=== PATIENT | female | born 1955 | race Caucasian/White ===

== ENCOUNTER 2024-07-09 15:43 | Emergency (ER) | payer MEDICARE ==
--- NOTE | 2024-07-09 15:49 | ERPHSYRPT ---
- History of Present Illness Time Seen by Provider: 07/09/24 15:48 Source: patient Exam Limitations: no limitations Physician History: This is a 69-year-old white female patient who was sent to the emergency department by the office of Dr. Rutherford secondary to finding of a nondisplaced proximal left femur subcapital fracture found on an x-ray that was performed approximately an hour prior to arrival to the emergency department. Patient states that she recalls injuring the left hip approximately 2 weeks ago. Patient has a left below the knee amputation and put herself on nonweightbearing until approximately 2 days ago. Since then she has been weightbearing again. Patient has chronic low back pain and recently switched to oxycodone medication that helps her back. She also is on Topamax to help with her left below the knee phantom pain. Patient has a history of coronary artery disease. She has no chest pain or shortness of breath at this time. Timing/Duration: week(s) (2), other (Pain is not worse but it is present with ambulation) Occured at: home Context: unknown Quality: sharpness Hip Pain Location: hip (L) Severity of Pain-Max: mild (To moderate) Severity of Pain-Current: mild (To moderate) Modifying Factors: Improves With: movement Symptoms prior to fall: none Associated Symptoms: denies symptoms Allergies/Adverse Reactions: cephalexin [From Keflex] Allergy (Verified 07/09/24 15:56) flush and fainting Home Medications: Aspirin 81 gm Chew [Baby Aspirin 81 mg Chew] 81 mg PO DAILY 12/27/22 [History] Buspirone HCl 5 mg [Buspar 5 mg] 15 mg PO BID 12/27/22 [History] Cilostazol 100 mg [Pletal 100 MG] 100 mg PO BID 12/27/22 [History] Fluoxetine HCl 20 mg [Prozac 20 MG] 20 mg PO DAILY 12/27/22 [History] Furosemide [Lasix] 20 mg PO DAILY 12/27/22 [History] Gabapentin [Neurontin ] 300 mg PO TID 12/27/22 [History] HydrALAzine HCL 25 MG TAB [Apresoline 25 MG TABLET] 25 mg PO BID 12/27/22 [History] Insulin Glargine,Hum.rec.anlog [Mele Forteostar] 30 unit SQ DAILY 12/27/22 [History] gemfibroziL [Gemfibrozil] 600 mg PO BID 12/27/22 [History] Travel Risk - International Travel Have you traveled outside of the country in past 3 weeks: No - Emerging Infectious Disease Are you exhibiting symptoms associated with any current EIDs: No - Past Medical History Pertinent Past Medical History: Yes Neurological History: Other ENT History: Cataracts Cardiac History: Myocardial Infarction (MS) Respiratory History: No Pertinent History Endocrine Medical History: Diabetes Type II Musculoskeletal History: Fractures GI Medical History: GERD History: No Pertinent History Psycho-Social History: Anxiety, Depression Female Reproductive Disorders: No Pertinent History Other Medical History: PHANTOM PAINS AT TIMES. SOME ANKLE PAIN. FORMER SMOKER. - Past Surgical History Past Surgical History: Yes Neuro Surgical History: No Pertinent History Cardiac: CABG, Cardiac Catheterization, Vascular Surgery Respiratory: Other Gastrointestinal: No Pertinent History Genitourinary: No Pertinent History Musculoskeletal: Amputation, Orthopedic Surgery Female Surgical History: No Pertinent History Other Surgical History: left leg fx with exterior fixation and eventual LBK amputation camelia to pseudomonas. double heart bypass. 2 chest tubes due to pnemonia. 2 x vein stripping - Social History Smoking Status: Former smoker How long have you smoked: 25 years Exposure to second hand smoke: No Drug Use: none - Nursing Vital Signs Nursing Vital Signs: Initial Vital Signs Temperature 97.7 F 07/09/24 15:57 Pulse Rate 91 H 07/09/24 15:57 Respiratory Rate 20 07/09/24 15:57 Blood Pressure 140/53 07/09/24 15:57 O2 Sat by Pulse Oximetry 97 07/09/24 15:57 Pain Scale Pain Intensity 7 - Course Nursing assessment & vital signs reviewed: Yes - Progress Progress: improved, pain not gone completely Progress Note: 07/09/24 16:28 My medical decision making and the assignment of low complexity to this patien t's medical issue today is based on a discussion with the patient as well as a discussion with our orthopedic surgeon, Dr. Odonnell. The x-ray was reviewed by Dr. Odonnell. The report from the radiologist was read by me and I read the impression to Dr. Odonnell. There is a nondisplaced, proximal left femur subcapital fracture and subtle sclerosis present suggesting healing process. Based on those findings, Dr. Odonnell stated that the patient can follow-up in the orthopedic clinic here at [facility] on 07/12/2024 at 8 AM. The patient has been weightbearing for the last 2 days. We will make her nonweightbearing over the weekend. The patient and family were informed of the decision Dr. Odonnell made based on his review of the x-ray and x-ray report findings. They wish to follow his plan. The patient and her family were told that if the patient's pain worsens, she is to return to the emergency department. Counseled pt/family regarding: diagnosis, need for follow-up, rad results (Discussed the left hip x-ray results that were performed as an outpatient with the patient and the patient's family) Medical Desision Making - Independent Historian Additional History obtained from: Spouse, Family - Diagnostic Testing Diagnostic test were ordered, analyzed, and reviewed by me: Yes Radiological Interpretation: Reviewed by me, Teleradiologist Report - Risk of complications The pt has a mod risk of morbidity or mortality based on: Need for prescription drug management - Departure Departure Disposition: Home Clinical Impression: Subcapital fracture of left hip Condition: Stable Critical Care Time: No Referrals: VAN RUTHERFORD MD [Primary Care Provider] - Follow up/PCP as directed Additional Instructions: Nonweightbearing until you are seen by Dr. Odonnell at the [facility] orthopedic clinic on 07/12/2024 at 8 AM. Continue your other medications as prescribed. Do not take your Norflex medication within a 2 to 3- hour window from your oxycodone medication. Prescriptions: Orphenadrine Citrate 100 mg [Norflex 100 MG Tablet] 100 mg PO DAILY #5 tab
[2024-07-09 16:09] VITALS: TEMP 97.7
[2024-07-09] MEDS ORDERED: ZOFRAN ODT 4 MG ONE (16:27)
[2024-07-09] MEDS ORDERED: Hydromorphone 1 mg/ml Injection ONE (16:28)
[2024-07-09] MEDS ORDERED: Norflex 60 MG/2 ML ONE (16:28)
[2024-07-09] MEDS: ZOFRAN ODT 4 MG PO ONE (16:30)
[2024-07-09] MEDS: Norflex 60 MG/2 ML IM ONE (16:31)
[2024-07-09] MEDS: Hydromorphone 1 mg/ml Injection IM ONE (16:34)
[2024-07-09 16:42] VITALS: BP 124/61; PULSE 80; RESP 16; O2SAT 96
== END 2024-07-09 16:47 | disposition home or self-care (01) ==
LOC: ED 15:43
DX: S72.012A Unspecified intracapsular fracture of left femur, initial encounter for closed fracture (principal); E11.9 Type 2 diabetes mellitus without complications; Z79.891 Long term (current) use of opiate analgesic; Z79.02 Long term (current) use of antithrombotics/antiplatelets; Z79.4 Long term (current) use of insulin; Z79.899 Other long term (current) drug therapy
CPT/HCPCS: 96372; 99283; J1170; J2360; Q0162